=== PATIENT | male | born 1985 | race Two or more races ===

== ENCOUNTER 2022-02-23 21:15 | Inpatient (IN) | payer SELFPAY ==
[~2022-02-23] VITALS: Ht 167.6 cm; Wt 76.1 kg
[2022-02-23 22:00] LABS: BASO % 0 % (0-3); EOS # 0.1 x10^3/uL (0.0-0.7); EOS % 2 % (0-3); HEMATOCRIT 43.8 % (39.0-53.0); HEMOGLOBIN 14.8 g/dL (13.0-17.5); LYMPH % 26 % (24-48); MEAN CORPUSCULAR HEMOGLOBIN 31 pg (25-35); MEAN CORPUSCULAR HGB CONC 34 g/dL (31-37); MEAN CORPUSCULAR VOLUME 93 fL (79-100); MONO # 0.6 x10^3/uL (0.0-1.1); MONO % 7 % (0-9); NEUT # 5.2 x10^3/uL (1.8-7.7); NEUT % 65 % (31-73); PLATELET COUNT 268 x10^3/uL (140-400); RED BLOOD COUNT 4.74 x10^6/uL (4.30-5.70); RED CELL DISTRIBUTION WIDTH 13.5 % (11.5-14.5)
[2022-02-23] MEDS ORDERED: MULTIVIT INFUSN,ADULT 4,VIT K 10 ML, THIAMINE INJ 100 MG, FOLIC ACID INJ 1 MG in IV NOR... IV ONE (22:00)
[2022-02-23 22:11] LABS: ACETAMIN < 2 mcg/ml (10-30); ETHANOL 120 mg/dL (0-10); SALIC 2.7 mg/dL (2.8-20.0)
[2022-02-23 22:15] LABS: ALBUMIN 4.4 g/dL (3.4-5.0); ALBUMIN/GLOBULIN RATIO 1.2 (1.0-1.7); CALCIUM 8.6 mg/dL (8.5-10.1); CREATININE 0.8 mg/dL (0.7-1.3); TOTAL BILIRUBIN 0.9 mg/dL (0.2-1.0); TOTAL PROTEIN 8.1 g/dL (6.4-8.2)
[2022-02-23 22:17] LABS: POTASSIUM 2.9 mmol/L (3.5-5.1)
[2022-02-23] MEDS ORDERED: POTASSIUM CHLORIDE 20 MEQ TABLET.ER. PO ONE (22:30)
--- NOTE | 2022-02-23 23:17 | PHYS DOC ---
Past Medical History Past Medical History: Alcoholism Additional Past Medical Histor: hemorrhoids (ARONMARISA Bell EMBEDDED PROCESSOR) Past Surgical History: No Surgical History (ARONMARISA Bell EMBEDDED PROCESSOR) Smoking Status: Current Every Day Smoker Alcohol Use: Heavy (MARISA RUTHERFORD Radha EMBEDDED PROCESSOR) General Adult EDM: Chief Complaint: ALCOHOL INTOXICATION HPI: HPI: Patient is a 36 year old male with history of alcoholism presenting today complaining of nausea and vomiting that began today after drinking 6-8 beers. Denies any abdominal pain, denies any chest pain or shortness of breath. He also reports smoking weed Patient is Romansh-speaking and interpretation is provided by one of the CNAs (MARISA RUTHERFORD EMBEDDED PROCESSOR) Review of Systems: Review of Systems: Constitutional: Denies fever or chills. [] Eyes: Denies change in visual acuity. [] HENT: Denies nasal congestion or sore throat. [] Respiratory: Denies cough or shortness of breath. [] Cardiovascular: Denies chest pain or edema. [] GI: Reports nausea, vomiting. Denies abdominal pain, bloody stools or diarrhea. [] : Denies dysuria. [] Musculoskeletal: Denies back pain or joint pain. [] Integument: Denies rash. [] Neurologic: Denies headache, focal weakness or sensory changes. [] Endocrine: Denies polyuria or polydipsia. [] Lymphatic: Denies swollen glands. [] Psychiatric: Reports alcohol intoxication (ARONMARISA Bell EMBEDDED PROCESSOR) Heart Score: C/O Chest Pain: N/A Risk Factors: Risk Factors: DM, Current or recent (<one month) smoker, HTN, HLP, family history of CAD, obesity. Risk Scores: Score 0 - 3: 2.5% MACE over next 6 weeks - Discharge Home Score 4 - 6: 20.3% MACE over next 6 weeks - Admit for Clinical Observation Score 7 - 10: 72.7% MACE over next 6 weeks - Early Invasive Strategies (MARISA RUTHERFORD EMBEDDED PROCESSOR) Current Medications: Current Medications Medications (Trade) Dose Ordered Sig/Rodrigo Start Time Stop Time Status Last Admin Dose Admin Multivitamins 10 ml/Thiamine HCl 100 mg/Folic Acid 1 mg/Sodium Chloride 1,011.2 ml @ 1,000.088 mls/hr 1X ONCE 02/23/22 22:00 02/23/22 23:00 DC 02/23/22 22:02 1,000.088 MLS/HR Potassium Chloride (Klor-Con) 40 meq 1X ONCE 02/23/22 22:30 02/23/22 22:31 DC 02/23/22 22:34 40 MEQ (MARISA RUTHERFORD EMBEDDED PROCESSOR) Allergies: Allergies: Allergies Coded Allergies Type Severity Reaction Last Updated Verified No Known Drug Allergies 02/23/22 No (MARISA RUTHERFORD EMBEDDED PROCESSOR) Physical Exam: PE: Constitutional: Well developed, well nourished, no acute distress, non-toxic appearance. [] HENT: Normocephalic, atraumatic, bilateral external ears normal, oropharynx moist, no oral exudates, nose normal. [] Eyes: PERRLA, EOMI, conjunctiva normal, no discharge. [] Neck: Normal range of motion, no tenderness, supple, no stridor. [] Cardiovascular:Heart rate regular rhythm, no murmur [] Lungs & Thorax: Bilateral breath sounds clear to auscultation [] Abdomen: Bowel sounds normal, soft, no tenderness, no masses, no pulsatile masses. [] Skin: Warm, dry, no erythema, no rash. [] Back: No tenderness, no CVA tenderness. [] Extremities: No tenderness, no cyanosis, no clubbing, ROM intact, no edema. [] Neurologic: Alert and oriented X 3, normal motor function, normal sensory function, no focal deficits noted. [] Psychologic: Flat affect, very sleepy though arousable and able to talk. (MARISA RUTHERFORD EMBEDDED PROCESSOR) Current Patient Data: Labs: Laboratory Tests Test 02/23/22 21:30 White Blood Count 8.0 x10^3/uL (4.0-11.0) Red Blood Count 4.74 x10^6/uL (4.30-5.70) Hemoglobin 14.8 g/dL (13.0-17.5) Hematocrit 43.8 % (39.0-53.0) Mean Corpuscular Volume 93 fL (79-100) Mean Corpuscular Hemoglobin 31 pg (25-35) Mean Corpuscular Hemoglobin Concent 34 g/dL (31-37) Red Cell Distribution Width 13.5 % (11.5-14.5) Platelet Count 268 x10^3/uL (140-400) Neutrophils (%) (Auto) 65 % (31-73) Lymphocytes (%) (Auto) 26 % (24-48) Monocytes (%) (Auto) 7 % (0-9) Eosinophils (%) (Auto) 2 % (0-3) Basophils (%) (Auto) 0 % (0-3) Neutrophils # (Auto) 5.2 x10^3/uL (1.8-7.7) Lymphocytes # (Auto) 2.0 x10^3/uL (1.0-4.8) Monocytes # (Auto) 0.6 x10^3/uL (0.0-1.1) Eosinophils # (Auto) 0.1 x10^3/uL (0.0-0.7) Basophils # (Auto) 0.0 x10^3/uL (0.0-0.2) Sodium Level 139 mmol/L (136-145) Potassium Level 2.9 mmol/L (3.5-5.1) *L Chloride Level 101 mmol/L (98-107) Carbon Dioxide Level 22 mmol/L (21-32) Anion Gap 16 (6-14) H Blood Urea Nitrogen 13 mg/dL (8-26) Creatinine 0.8 mg/dL (0.7-1.3) Estimated GFR (Cockcroft-Gault) 110.0 BUN/Creatinine Ratio 16 (6-20) Glucose Level 110 mg/dL (70-99) H Calcium Level 8.6 mg/dL (8.5-10.1) Magnesium Level 2.0 mg/dL (1.8-2.4) Total Bilirubin 0.9 mg/dL (0.2-1.0) Aspartate Amino Transferase (AST) 21 U/L (15-37) Alanine Aminotransferase (ALT) 18 U/L (16-63) Alkaline Phosphatase 86 U/L (46-116) Total Protein 8.1 g/dL (6.4-8.2) Albumin 4.4 g/dL (3.4-5.0) Albumin/Globulin Ratio 1.2 (1.0-1.7) Lipase 71 U/L (73-393) L Salicylates Level 2.7 mg/dL (2.8-20.0) L Salicylate Last Dose Date Unk Salicylate Last Dose Time Unk Acetaminophen Level < 2 mcg/ml (10-30) L Acetaminophen Last Dose Date Unk Acetaminophen Last Dose Time Unk Ethyl Alcohol Level 120 mg/dL (0-10) H Laboratory Tests 02/23/22 21:30 Laboratory Tests 02/23/22 21:30 Vital Signs: Vital Signs Date Time Temp Pulse Resp B/P (MAP) Pulse Ox O2 Delivery O2 Flow Rate FiO2 02/23/22 22:10 92 18 130/75 (93) 100 Room Air 02/23/22 21:18 98.1 98.1 (MARISA RUTHERFORD APRN) EKG: EKG: [] (MARISA RUTHERFORD APRN) Radiology/Procedures: Radiology/Procedures: [] (MARISA RUTHERFORD APRN) Course & Med Decision Making: Course & Med Decision Making Pertinent Labs and Imaging studies reviewed. (See chart for details) This a 36-year-old male patient presented to the ED today complaining of nausea, vomiting, symptoms began after drinking beer. Reports history of alcohol use. Alcohol level 120. CBC with no acute findings, CMP with potassium of 2.9, oral potassium replacement done in the ED. Given a banana bag. [id number] Boyd. (MARISA RUTHERFORD APRN) Course & Med Decision Making This is a 36-year-old male with a history of heavy alcohol use. He initially pr esented intoxicated. While in the ED he became tachycardic with a rate of 130 or so. Twelve-lead EKG is rates down to 106 but he appears to be in atrial fibrillation with fairly frequent PVCs present as well. At this time he has been given a banana bag as well as a liter of normal saline. We will keep him in the hospital for further cardiac monitoring and testing as indicated, he is in stable but guarded condition at this time. Twelve-lead EKG demonstrates atrial fibrillation with a rate of 106. PVCs are present as well. There is no ST elevation or depression. QRS and QT corrected intervals are within normal limits. (HAYDER BOYD MD) Dragon Disclaimer: Dragon Disclaimer: This electronic medical record was generated, in whole or in part, using a voice recognition dictation system. (MUTUNGA,MARISA M EMBEDDED PROCESSOR) Departure Departure Impression: Primary Impression: Alcohol intoxication Qualified Codes: F10.929 - Alcohol use, unspecified with intoxication, unspecified Additional Impressions: Nausea and vomiting Qualified Codes: R11.2 - Nausea with vomiting, unspecified Hypokalemia New onset a-fib Disposition: 09 ADMITTED INPATIENT Condition: GUARDED Referrals: NO PCP (PCP) MARISA RUTHERFORD APRN Feb 23, 2022 23:17 HAYDER BOYD MD Feb 24, 2022 02:17
[2022-02-23 23:33] LABS: AMPHETAMINE/METHAMPHETAMINE NEG (NEG); BARBITURATES NEG (NEG); BENZODIAZEPINES NEG (NEG); CANNABINOIDS POS (NEG); COCAINE NEG (NEG); METHADONE NEG (NEG); OPIATES NEG (NEG); PHENCYCLIDINE NEG (NEG)
[2022-02-23 23:35] LABS: BACTERIA,URINE 0 /HPF (0-FEW); RBC,URINE 0 /HPF (0-2); WBC,URINE 0 /HPF (0-4)
[2022-02-24] MEDS ORDERED: MULTIVIT INFUSN,ADULT 4,VIT K 10 ML, THIAMINE INJ 100 MG, FOLIC ACID INJ 1 MG in IV NOR... IV ONE (01:30)
[2022-02-24] MEDS ORDERED: IV NORMAL SALINE 1000ML BAG 1,000 ML IV ONE (01:30)
[2022-02-24] MEDS ORDERED: POTASSIUM CHLORIDE 20 MEQ TABLET.ER. PO ONE (02:30)
[2022-02-24] MEDS ORDERED: ONDANSETRON PF 4 MG/2 ML VIAL. IVP PRN ×2 (02:30→07:45)
[2022-02-24 03:36] VITALS: BP 127/80
--- NOTE | 2022-02-24 04:16 | NUR ---
Pt arrived to unit per cart pt ambulated to bed from cart with standby assist,pt oriented to surroundings and call light tele monitor applied to pt vs obtained and stable pt denied chest pain at this time. Pt c/o his hemorrhoids at time of assessment. Poc explained to pt with translation call light in placed in reach will resume care and continue to monitor pt.
[2022-02-24 07:00] VITALS: BP 125/81
--- NOTE | 2022-02-24 07:22 | EKG ---
[facility] [address] [place] [address] Test Date: 2022-02-24 Test Time: 01:41:11 Pat Name: CLARENCE ELY Department: Room: [facility] Gender: M Patient Services Coordinator: : 1985 Requested By: HAYDER BOYD Order Number: [id number] Reading MD: Travis Jesus Measurements Intervals [place] Rate: 106 P: OK: QRS: 71 QRSD: 82 T: 11 QT: 340 QTc: 453 Interpretive Statements ATRIAL FIBRILLATION Electronically Signed On 02-26-2022 21:33:49 CDT by Travis Jesus
[2022-02-24] MEDS ORDERED: ONDANSETRON ODT 4 MG TAB.RAPDIS. PO PRN (07:45)
[2022-02-24] MEDS ORDERED: POTASSIUM CL 20MEQ D5-0.45NACL 1,000 ML IV ONE (07:45)
[2022-02-24] MEDS: ACETAMINOPHEN 325 MG TABLET. PO PRN (08:00)
--- NOTE | 2022-02-24 08:22 | PDOC1 ---
History and Physical Date of Admission Date of Admission DATE: 02/24/22 TIME: 07:52 Identification/Chief Complaint Chief Complaint Vomiting Source Source: Patient History of Present Illness History of Present Illness Mr Leal is a 36 year old male with history of alcohol use disorder, smoker presenting to ED with significant other complaining of nausea and vomiting that began after drinking 6-8 beers. Denies any abdominal pain, denies any chest pain or shortness of breath. He also reports smoking marijuana Patient is Mozambican-speaking and interpretation is provided by [employer] undercover cop and W-21 application Alcohol level 120. CBC with no acute findings, CMP with potassium of 2.9, oral potassium replacement done in the ED. Given a banana bag. He initially presented intoxicated and when he got up to stand became tachycardic with a rate of 130 Twelve-lead EKG demonstrates atrial fibrillation with a rate of 106. PVCs are present as well. There is no ST elevation or depression. QRS and QT corrected intervals are within normal limits. WBC 8, Hb 14.8, platelets 268, NA 139, K3.9, BUN 13, CR 0.8, glucose 110, lipase 71, LFTs within normal laboratory limits, ethanol level 120 mg/dL at 2130, urine ethanol and cannabinoids positive, urinalysis otherwise bland Seen bedside and after 4 hours of atrial tachycardia on telemetry he converted to sinus about 30 minutes prior to my evaluation. He feels improved has a little bit of nausea but is asking for something by mouth Past Medical History Cardiovascular: HTN Past Surgical History Past Surgical History: No pertinent history Family History Family History: Diabetes, High Cholestrol, Hypertension Social History Smoke: 1 pack per day ALCOHOL: heavy Drugs: Marijuana Current Problem List Problem List Problems Medical Problems: (1) Alcohol intoxication Status: Acute (2) Hypokalemia Status: Acute (3) Nausea and vomiting Status: Acute (4) New onset a-fib Status: Acute Current Medications Current Medications Current Medications Multivitamins 10 ml/Thiamine HCl 100 mg/Folic Acid 1 mg/Sodium Chloride 1,011.2 ml @ 1,000.088 mls/hr 1X ONCE IV Last administered on 02/23/22at 22:02; Start 02/23/22 at 22:00; Stop 02/23/22 at 23:00; Status DC Potassium Chloride (Klor-Con) 40 meq 1X ONCE PO Last administered on 02/23/22at 22:34; Start 02/23/22 at 22:30; Stop 02/23/22 at 22:31; Status DC Multivitamins 10 ml/Thiamine HCl 100 mg/Folic Acid 1 mg/Sodium Chloride 1,011.2 ml @ 1,000.088 mls/hr 1X ONCE IV ; Start 02/24/22 at 01:30; Stop 02/24/22 at 02:30; Status Cancel Sodium Chloride 1,000 ml @ 1,000 mls/hr 1X ONCE IV Last administered on 02/24/22at 01:30; Start 02/24/22 at 01:30; Stop 02/24/22 at 02:29; Status DC Ondansetron HCl (Zofran) 4 mg PRN Q8HRS PRN IVP NAUSEA/VOMITING; Start 02/24/22 at 02:30; Stop 02/25/22 at 02:29 Potassium Chloride (Klor-Con) 40 meq 1X ONCE PO Last administered on 02/24/22at 02:41; Start 02/24/22 at 02:30; Stop 02/24/22 at 02:31; Status DC Active Scripts Active Reported No Known Medications Prior To Admisstion (Info) Each 1 Each Allergies Allergies: Coded Allergies: No Known Drug Allergies (Unverified , 02/23/22) ROS General: YES: Fatigue, Malaise; No: Chills, Night Sweats, Appetite, Other PSYCHOLOGICAL ROS: No: Anxiety, Behavioral Disorder, Concentration difficultie, Decreased libido, Depression, Disorientation, Hallucinations, Hostility, Irritablity, Memory difficulties, Mood Swings, Obsessive thoughts, Physical abuse, Sexual abuse, Sleep disturbances, Suicidal ideation, Other Eyes: No Blurry vision, No Decreased vision, No Double vision, No Dry eyes, No Excessive tearing, No Eye Pain, No Itchy Eyes, No Loss of vision, No Photophobia, No Scotomata, No Uses contacts, No Uses glasses, No Other HEENT: No: Heacaches, Visual Changes, Hearing change, Nasal congestion, Nasal discharge, Oral lesions, Sinus pain, Sore Throat, Epistaxis, Sneezing, Snoring, Tinnitus, Vertigo, Vocal changes, Other ALLERGY AND IMMUNOLOGY: No: Hives, Insect Bite Sensitivity, Itchy/Watery Eyes, Nasal Congestion, Post Nasal Drip, Seasonal Allergies, Other Hematological and Lymphatic: No: Bleeding Problems, Blood Clots, Blood Transfusions, Brusing, Night Sweats, Pallor, Swollen Lymph Nodes, Other ENDOCRINE: No: Breast Changes, Galactorrhea, Hair Pattern Changes, Hot Flashes, Malaise/lethargy, Mood Swings, Palpitations, Polydipsia/polyuria, Skin Changes, Temperature Intolerance, Unexpected Weight Changes, Other Breast: No New/Changing Breast Lumps, No Nipple changes, No Nipple discharge, No Other Respiratory: No: Cough, Hemoptysis, Orthopnea, Pleuritic Pain, Shortness of breath, SOB with excertion, Sputum Changes, Stridor, Tachypnea, Wheezing, Other Cardiovascular: No Chest Pain, No Palpitations, No Orthopnea, No Paroxysmal Noc. Dyspnea, No Edema, No Lt Headedness, No Other Gastrointestinal: Yes Nausea; No Vomiting, No Abdominal Pain, No Diarrhea, No Constipation, No Melena, No Hematochezia, No Other Genitourinary: No Dysuria, No Frequency, No Incontinence, No Hematuria, No Retention, No Discharge, No Urgency, No Pain, No Flank Pain, No Other, No , No , No , No , No , No , No Musculoskeletal: No Gait Disturbance, No Joint Pain, No Joint Stiffness, No Joint Swelling, No Muscle Pain, No Muscular Weakness, No Pain In:, No Swelling In:, No Other Neurological: No Behavorial Changes, No Bowel/Bladder ControlChng, No Confusion, No Dizziness, No Gait Disturbance, No Headaches, No Impaired Coord/balance, No Memory Loss, No Numbness/Tingling, No Seizures, No Speech Problems, No Tremors, No Visual Changes, No Weakness, No Other Skin: No Dry Skin, No Eczema, No Hair Changes, No Lumps, No Mole Changes, No Mottling, No Nail Changes, No Pruritus, No Rash, No Skin Lesion Changes, No Other, No Acne Physical Exam General: Alert, Oriented X3, Cooperative, mild distress HEENT: Atraumatic, PERRLA, EOMI, Mucous membr. moist/pink Lungs: Clear to auscultation, Normal air movement Heart: S1S2, RRR, no thrills, no rubs, no gallops, no murmurs Abdomen: Normal bowel sounds, Soft, No tenderness, No hepatosplenomegaly, No masses Rectal Exam: not examined Extremities: No clubbing, No cyanosis, No edema, Normal pulses, No tenderness/swelling Skin: No rashes, No breakdown, No significant lesion Neuro: Normal gait, Normal speech, Strength at 5/5 X4 ext, Normal tone, Sensation intact, Cranial nerves 3-12 NL, Reflexes 2+ Psych/Mental Status: Mental status NL, Mood NL Vitals Vitals Vital Signs Date Time Temp Pulse Resp B/P (MAP) Pulse Ox O2 Delivery O2 Flow Rate FiO2 02/24/22 03:36 97.4 105 18 127/80 (96) 98 Room Air 97.4 02/24/22 02:10 Labs Labs Laboratory Tests Test 02/23/22 21:30 02/23/22 23:19 White Blood Count 8.0 x10^3/uL (4.0-11.0) Red Blood Count 4.74 x10^6/uL (4.30-5.70) Hemoglobin 14.8 g/dL (13.0-17.5) Hematocrit 43.8 % (39.0-53.0) Mean Corpuscular Volume 93 fL (79-100) Mean Corpuscular Hemoglobin 31 pg (25-35) Mean Corpuscular Hemoglobin Concent 34 g/dL (31-37) Red Cell Distribution Width 13.5 % (11.5-14.5) Platelet Count 268 x10^3/uL (140-400) Neutrophils (%) (Auto) 65 % (31-73) Lymphocytes (%) (Auto) 26 % (24-48) Monocytes (%) (Auto) 7 % (0-9) Eosinophils (%) (Auto) 2 % (0-3) Basophils (%) (Auto) 0 % (0-3) Neutrophils # (Auto) 5.2 x10^3/uL (1.8-7.7) Lymphocytes # (Auto) 2.0 x10^3/uL (1.0-4.8) Monocytes # (Auto) 0.6 x10^3/uL (0.0-1.1) Eosinophils # (Auto) 0.1 x10^3/uL (0.0-0.7) Basophils # (Auto) 0.0 x10^3/uL (0.0-0.2) Sodium Level 139 mmol/L (136-145) Potassium Level 2.9 mmol/L (3.5-5.1) Chloride Level 101 mmol/L (98-107) Carbon Dioxide Level 22 mmol/L (21-32) Anion Gap 16 (6-14) Blood Urea Nitrogen 13 mg/dL (8-26) Creatinine 0.8 mg/dL (0.7-1.3) Estimated GFR (Cockcroft-Gault) 110.0 BUN/Creatinine Ratio 16 (6-20) Glucose Level 110 mg/dL (70-99) Calcium Level 8.6 mg/dL (8.5-10.1) Magnesium Level 2.0 mg/dL (1.8-2.4) Total Bilirubin 0.9 mg/dL (0.2-1.0) Aspartate Amino Transf (AST/SGOT) 21 U/L (15-37) Alanine Aminotransferase (ALT/SGPT) 18 U/L (16-63) Alkaline Phosphatase 86 U/L (46-116) Total Protein 8.1 g/dL (6.4-8.2) Albumin 4.4 g/dL (3.4-5.0) Albumin/Globulin Ratio 1.2 (1.0-1.7) Lipase 71 U/L (73-393) Salicylates Level 2.7 mg/dL (2.8-20.0) Salicylate Last Dose Date Unk Salicylate Last Dose Time Unk Acetaminophen Level < 2 mcg/ml (10-30) Acetaminophen Last Dose Date Unk Acetaminophen Last Dose Time Unk Ethyl Alcohol Level 120 mg/dL (0-10) Urine Collection Type Unknown Urine Color (Auto) Colorless Urine Turbidity Clear Urine pH (Auto) 6.0 (<5.0-8.0) Urine Specific [place] 1.006 (1.000-1.030) Urine Protein (Auto) Negative mg/dL (Negative) Urine Glucose (Auto)(UA) Negative mg/dL (Negative) Urine Ketones (Auto) Negative mg/dL (Negative) Urine Blood (Auto) Negative (Negative) Urine Nitrite Negative (Negative) Urine Bilirubin (Auto) Negative (Negative) Urine Urobilinogen (Auto) Normal mg/dL (Normal) Urine Leukocyte Esterase (Auto) Negative (Negative) Urine RBC 0 /HPF (0-2) Urine WBC 0 /HPF (0-4) Urine Squamous Epithelial Cells Occ /LPF Urine Bacteria 0 /HPF (0-FEW) Urine Opiates Screen Neg (NEG) Urine Methadone Screen Neg (NEG) Urine Barbiturates Neg (NEG) Urine Phencyclidine Screen Neg (NEG) Urine Amphetamine/Methamphetamine Neg (NEG) Urine Benzodiazepines Screen Neg (NEG) Urine Cocaine Screen Neg (NEG) Urine Cannabinoids Screen Pos (NEG) Urine Ethyl Alcohol Pos (NEG) Laboratory Tests Test 02/23/22 21:30 02/23/22 23:19 White Blood Count 8.0 x10^3/uL (4.0-11.0) Red Blood Count 4.74 x10^6/uL (4.30-5.70) Hemoglobin 14.8 g/dL (13.0-17.5) Hematocrit 43.8 % (39.0-53.0) Mean Corpuscular Volume 93 fL (79-100) Mean Corpuscular Hemoglobin 31 pg (25-35) Mean Corpuscular Hemoglobin Concent 34 g/dL (31-37) Red Cell Distribution Width 13.5 % (11.5-14.5) Platelet Count 268 x10^3/uL (140-400) Neutrophils (%) (Auto) 65 % (31-73) Lymphocytes (%) (Auto) 26 % (24-48) Monocytes (%) (Auto) 7 % (0-9) Eosinophils (%) (Auto) 2 % (0-3) Basophils (%) (Auto) 0 % (0-3) Neutrophils # (Auto) 5.2 x10^3/uL (1.8-7.7) Lymphocytes # (Auto) 2.0 x10^3/uL (1.0-4.8) Monocytes # (Auto) 0.6 x10^3/uL (0.0-1.1) Eosinophils # (Auto) 0.1 x10^3/uL (0.0-0.7) Basophils # (Auto) 0.0 x10^3/uL (0.0-0.2) Sodium Level 139 mmol/L (136-145) Potassium Level 2.9 mmol/L (3.5-5.1) Chloride Level 101 mmol/L (98-107) Carbon Dioxide Level 22 mmol/L (21-32) Anion Gap 16 (6-14) Blood Urea Nitrogen 13 mg/dL (8-26) Creatinine 0.8 mg/dL (0.7-1.3) Estimated GFR (Cockcroft-Gault) 110.0 BUN/Creatinine Ratio 16 (6-20) Glucose Level 110 mg/dL (70-99) Calcium Level 8.6 mg/dL (8.5-10.1) Magnesium Level 2.0 mg/dL (1.8-2.4) Total Bilirubin 0.9 mg/dL (0.2-1.0) Aspartate Amino Transf (AST/SGOT) 21 U/L (15-37) Alanine Aminotransferase (ALT/SGPT) 18 U/L (16-63) Alkaline Phosphatase 86 U/L (46-116) Total Protein 8.1 g/dL (6.4-8.2) Albumin 4.4 g/dL (3.4-5.0) Albumin/Globulin Ratio 1.2 (1.0-1.7) Lipase 71 U/L (73-393) Salicylates Level 2.7 mg/dL (2.8-20.0) Salicylate Last Dose Date Unk Salicylate Last Dose Time Unk Acetaminophen Level < 2 mcg/ml (10-30) Acetaminophen Last Dose Date Unk Acetaminophen Last Dose Time Unk Ethyl Alcohol Level 120 mg/dL (0-10) Urine Collection Type Unknown Urine Color (Auto) Colorless Urine Turbidity Clear Urine pH (Auto) 6.0 (<5.0-8.0) Urine Specific [place] 1.006 (1.000-1.030) Urine Protein (Auto) Negative mg/dL (Negative) Urine Glucose (Auto)(UA) Negative mg/dL (Negative) Urine Ketones (Auto) Negative mg/dL (Negative) Urine Blood (Auto) Negative (Negative) Urine Nitrite Negative (Negative) Urine Bilirubin (Auto) Negative (Negative) Urine Urobilinogen (Auto) Normal mg/dL (Normal) Urine Leukocyte Esterase (Auto) Negative (Negative) Urine RBC 0 /HPF (0-2) Urine WBC 0 /HPF (0-4) Urine Squamous Epithelial Cells Occ /LPF Urine Bacteria 0 /HPF (0-FEW) Urine Opiates Screen Neg (NEG) Urine Methadone Screen Neg (NEG) Urine Barbiturates Neg (NEG) Urine Phencyclidine Screen Neg (NEG) Urine Amphetamine/Methamphetamine Neg (NEG) Urine Benzodiazepines Screen Neg (NEG) Urine Cocaine Screen Neg (NEG) Urine Cannabinoids Screen Pos (NEG) Urine Ethyl Alcohol Pos (NEG) VTE Prophylaxis Ordered VTE Prophylaxis Devices: Yes VTE Pharmacological Prophylaxi: Yes Assessment/Plan Assessment/Plan Alcohol intoxication -given banana bag and IV fluids. IV Zofran for nausea control Nausea and vomiting -improved with IV fluids and nausea. Hypokalemia -due to vomiting GI losses. Replaced p.o. and IV New onset a-fib -converted to sinus spontaneously. He has significant other no prior history of hypertension was on blood pressure medications but has not been on them for long time. FEN - Cardiac diet PPX - lovenox FULL CODE Dispo - inpatient Justifications for Admission Other Justification BETZY RODRIGUEZ MD Feb 24, 2022 08:22
[2022-02-24 11:00] VITALS: BP 134/75
--- NOTE | 2022-02-24 11:51 | PDOC2 ---
KIMMIE DAVIS SENIOR WAREHOUSE CLERK 02/24/22 1151: CARDIAC CONSULT DATE OF CONSULT Date of Consult DATE: 02/24/22 TIME: 11:32 REASON FOR CONSULT Reason for Consult: AFIB REFERRING PHYSICIAN Referring Physician: Cass SOURCE Source: Chart review, Patient HISTORY OF PRESENT ILLNESS HISTORY OF PRESENT ILLNESS This is a 36 yo male admitted for ETOH misuse with associated nausea and vomiting and also diarrhea. Denies any chest pain, SOA. Upon admission he was noted with AFIB RVR which he spontaneously convert without meds. He was also noted with hypokalemia. No hx of CV disease and arrhythmias. Denies any fever or chills. He drinks at least 6 beers daily and yesterday did not eat food. He drank at least 7 beers yesterday before his symptoms started. No falls or any recent injury. PAST MEDICAL HISTORY Past Medical History No pertinent medical history PAST SURGICAL HISTORY Past Surgical History: No pertinent history FAMILY HISTORY Family History: Hypertension (mother) SOCIAL HISTORY Smoke: 1 pack per day ALCOHOL: heavy Drugs: Marijuana Lives: with Family CURRENT MEDICATIONS CURRENT MEDICATIONS Current Medications Medications (Trade) Dose Ordered Sig/Rodrigo Route PRN Reason Start Time Stop Time Status Last Admin Dose Admin Multivitamins 10 ml/Thiamine HCl 100 mg/Folic Acid 1 mg/Sodium Chloride 1,011.2 ml @ 1,000.088 mls/hr 1X ONCE IV 02/23/22 22:00 02/23/22 23:00 DC 02/23/22 22:02 Potassium Chloride (Klor-Con) 40 meq 1X ONCE PO 02/23/22 22:30 02/23/22 22:31 DC 02/23/22 22:34 Sodium Chloride 1,000 ml @ 1,000 mls/hr 1X ONCE IV 02/24/22 01:30 02/24/22 02:29 DC 02/24/22 01:30 Potassium Chloride (Klor-Con) 40 meq 1X ONCE PO 02/24/22 02:30 02/24/22 02:31 DC 02/24/22 02:41 Acetaminophen (Tylenol) 650 mg PRN Q6HRS PRN PO MILD PAIN / TEMP > 100.3'F 02/24/22 07:45 02/24/22 08:00 Potassium Chloride/Dextrose/ Sod Cl 1,000 ml @ 125 mls/hr Q8H ONCE IV 02/24/22 07:45 02/24/22 15:44 02/24/22 08:00 ALLERGIES ALLERGIES: Coded Allergies: No Known Drug Allergies (Unverified , 02/23/22) ROS Review of System 14 point ROS evaluated with pertinent positives noted per HPI PHYSICAL EXAM General: Alert, Oriented X3, Cooperative, No acute distress HEENT: Atraumatic, Mucous membr. moist/pink Lungs: Clear to auscultation, Normal air movement Heart: Regular rate (SR), Normal S1, Normal S2, No murmurs Abdomen: Soft, No tenderness Extremities: No cyanosis, No edema Skin: No breakdown, No significant lesion Neuro: Normal speech, Sensation intact Psych/Mental Status: Mental status NL, Mood NL MUSCULOSKELETAL: Full range of motion without pain VITALS/I&O VITALS/I&O: Vital Signs Date Time Temp Pulse Resp B/P (MAP) Pulse Ox O2 Delivery O2 Flow Rate FiO2 02/24/22 08:00 Room Air 02/24/22 07:00 98.2 92 16 125/81 (96) 98 98.2 02/24/22 02:10 I & O 02/23/22 02/23/22 02/24/22 15:00 23:00 07:00 Intake Total 1211.2 ml Balance 1211.2 ml LABS Lab: Laboratory Tests Test 02/23/22 21:30 02/23/22 23:19 White Blood Count 8.0 x10^3/uL (4.0-11.0) Red Blood Count 4.74 x10^6/uL (4.30-5.70) Hemoglobin 14.8 g/dL (13.0-17.5) Hematocrit 43.8 % (39.0-53.0) Mean Corpuscular Volume 93 fL (79-100) Mean Corpuscular Hemoglobin 31 pg (25-35) Mean Corpuscular Hemoglobin Concent 34 g/dL (31-37) Red Cell Distribution Width 13.5 % (11.5-14.5) Platelet Count 268 x10^3/uL (140-400) Neutrophils (%) (Auto) 65 % (31-73) Lymphocytes (%) (Auto) 26 % (24-48) Monocytes (%) (Auto) 7 % (0-9) Eosinophils (%) (Auto) 2 % (0-3) Basophils (%) (Auto) 0 % (0-3) Neutrophils # (Auto) 5.2 x10^3/uL (1.8-7.7) Lymphocytes # (Auto) 2.0 x10^3/uL (1.0-4.8) Monocytes # (Auto) 0.6 x10^3/uL (0.0-1.1) Eosinophils # (Auto) 0.1 x10^3/uL (0.0-0.7) Basophils # (Auto) 0.0 x10^3/uL (0.0-0.2) Sodium Level 139 mmol/L (136-145) Potassium Level 2.9 mmol/L (3.5-5.1) *L Chloride Level 101 mmol/L (98-107) Carbon Dioxide Level 22 mmol/L (21-32) Anion Gap 16 (6-14) H Blood Urea Nitrogen 13 mg/dL (8-26) Creatinine 0.8 mg/dL (0.7-1.3) Estimated GFR (Cockcroft-Gault) 110.0 BUN/Creatinine Ratio 16 (6-20) Glucose Level 110 mg/dL (70-99) H Calcium Level 8.6 mg/dL (8.5-10.1) Magnesium Level 2.0 mg/dL (1.8-2.4) Total Bilirubin 0.9 mg/dL (0.2-1.0) Aspartate Amino Transferase (AST) 21 U/L (15-37) Alanine Aminotransferase (ALT) 18 U/L (16-63) Alkaline Phosphatase 86 U/L (46-116) Total Protein 8.1 g/dL (6.4-8.2) Albumin 4.4 g/dL (3.4-5.0) Albumin/Globulin Ratio 1.2 (1.0-1.7) Lipase 71 U/L (73-393) L Salicylates Level 2.7 mg/dL (2.8-20.0) L Salicylate Last Dose Date Unk Salicylate Last Dose Time Unk Acetaminophen Level < 2 mcg/ml (10-30) L Acetaminophen Last Dose Date Unk Acetaminophen Last Dose Time Unk Ethyl Alcohol Level 120 mg/dL (0-10) H Urine Collection Type Unknown Urine Color (Auto) Colorless Urine Turbidity Clear Urine pH (Auto) 6.0 (<5.0-8.0) Urine Specific Pitts 1.006 (1.000-1.030) Urine Protein (Auto) Negative mg/dL (Negative) Urine Glucose (Auto)(UA) Negative mg/dL (Negative) Urine Ketones (Auto) Negative mg/dL (Negative) Urine Blood (Auto) Negative (Negative) Urine Nitrite Negative (Negative) Urine Bilirubin (Auto) Negative (Negative) Urine Urobilinogen (Auto) Normal mg/dL (Normal) Urine Leukocyte Esterase (Auto) Negative (Negative) Urine RBC 0 /HPF (0-2) Urine WBC 0 /HPF (0-4) Urine Squamous Epithelial Cells Occ /LPF Urine Bacteria 0 /HPF (0-FEW) Urine Opiates Screen Neg (NEG) Urine Methadone Screen Neg (NEG) Urine Barbiturates Neg (NEG) Urine Phencyclidine Screen Neg (NEG) Urine Amphetamine/Methamphetamine Neg (NEG) Urine Benzodiazepines Screen Neg (NEG) Urine Cocaine Screen Neg (NEG) Urine Cannabinoids Screen Pos (NEG) Urine Ethyl Alcohol Pos (NEG) Laboratory Tests 02/23/22 21:30 Laboratory Tests 02/23/22 21:30 ASSESSMENT/PLAN ASSESSMENT/PLAN 1. ETOH misuse 2. Nausea/vomiting/diarrhea: due to above 3. Anion gap metabolic acidosis: due to above 4. Hypokalemia 5. AFIB RVR: new onset due to above, spontaneously converted to SR 6. Tobacco and marijuana use Recommendations 1. CIWA protocol 2. Continue IVF 3. Low dose metoprolol and monitor for any bradycardia. Replace K 4. MCOT is recommended but may not be able to comply due to lack of health ins. 5. Lifestyle modification including abstinence as noted above 6. TTE and TSH ELLY THOMAS MD 02/25/22 1005: CARDIAC CONSULT ASSESSMENT/PLAN ASSESSMENT/PLAN Patient seen and examined 02/24/22. Agree with GRATED CHEESE MAKER's assessment and plan. Atrial fib new onset prob related to heavy alcohol use, presently back in SR Check 2D echo to assess LVF Plan event monitor as outpatient Importance for abstinence from alcohol abuse reemphasized Thank you for your consultation KIMMIE DAVIS APRN Feb 24, 2022 11:51 ELLY THOMAS MD Feb 25, 2022 10:05
[2022-02-24] MEDS: METOPROLOL TART IMMED RELEASE 25 MG TABLET. PO SCH ×2 (11:58→21:34)
[2022-02-24] MEDS ORDERED: ASPIRIN ENTERIC COATED 81 MG TABLET.DR. PO SCH (14:00)
[2022-02-24 14:24] LABS: CALCIUM 8.6 mg/dL (8.5-10.1); CREATININE 0.9 mg/dL (0.7-1.3); POTASSIUM 4.1 mmol/L (3.5-5.1)
--- NOTE | 2022-02-24 14:58 | NUR ---
SS following for discharge planning. SS reviewed pt chart and discussed with pt RN. Pt is from home with spouse and is currently on room air. Cardiology consulted. Self pay. Med Assist following. SS will continue to follow for discharge planning.
[2022-02-24 15:00] VITALS: BP 119/60
--- NOTE | 2022-02-24 16:50 | CARD ---
MR#: [id number] Date of Study: 02/24/2022 Ordering Physician: KIMMIE DAVIS, Referring Physician: KIMMIE DAVIS Tech: Pierre Colin [facility] APPROVED REPORT EXAM: Two-dimensional and M-mode echocardiogram with Doppler and color Doppler. Other Information Quality : GoodHR: 60bpm Rhythm : NSR INDICATION Atrial Fibrillation RISK FACTORS Smoking Etoh abuse 2D DIMENSIONS Left Atrium(2D)3.0 (1.6-4.0cm)IVSd1.0 (0.7-1.1cm) Aortic Root(2D)3.3 (2.0-3.7cm)LVDd4.7 (3.9-5.9cm) LVOT Diameter2.2 (1.8-2.4cm)PWd1.0 (0.7-1.1cm) LA Hgvukr47 (18-58mL)LVDs3.5 (2.5-4.0cm) FS (%) 26.0 %SV51.9 ml LVEF(%)51.1 (>50%) Aortic Valve AoV Peak Morgan.106.0cm/sAoV VTI19.8cm AO Peak GR.4.5mmHgLVOT Peak Morgan.85.5cm/s AO Mean GR.2mmHgAVA (VMAX)3.11cm2 Mitral Valve MV E Jgyrantd20.7cm/sMV E Peak Gr.3mmHg MV DECEL [id number] A Dvkkmmav58.4cm/s MV E Mean Gr.1mmHgE/A Ratio2.7 Pulmonary Valve PV Peak Lqfntwnl01.8cm/s Tricuspid Valve TR P. Nmtrgokh706is/sTR Peak Gr.14mmHg Pulmonary Vein S1 Ofijkfho07.0cm/sD2 Zbmridlk00.7cm/s LEFT VENTRICLE The left ventricle is normal size. There is normal left ventricular wall thickness. The left ventricu lar systolic function is mildly decreased. EF 40-45% There is mild global hypokinesis. The left ventr icular diastolic function and filling is normal for age. No left ventricle thrombus noted on this shazia dy. There is no ventricular septal defect visualized. There is no left ventricular aneurysm. There is no mass noted in the left ventricle. RIGHT VENTRICLE The right ventricle is mildly enlarged. There is normal right ventricular wall thickness. The right v entricular systolic function is normal. ATRIA The left atrium size is normal. The right atrium size is normal. The interatrial septum is intact wit h no evidence for an atrial septal defect or patent foramen ovale as noted on 2-D or Doppler imaging. AORTIC VALVE The aortic valve is mildly sclerotic. Doppler and Color Flow revealed no significant aortic regurgita tion. There is no significant aortic valvular stenosis. There is no aortic valvular vegetation. MITRAL VALVE The mitral valve is normal in structure and function. There is no evidence of mitral valve prolapse. There is no mitral valve stenosis. Doppler and Color-flow revealed trace to mild mitral regurgitation . TRICUSPID VALVE The tricuspid valve is normal in structure and function. Doppler and Color Flow revealed trace tricus pid regurgitation. The PA pressure was estimated at 19 mmHg. There is no tricuspid valve prolapse or vegetation. There is no tricuspid valve stenosis. PULMONIC VALVE Doppler and Color Flow revealed no pulmonic valvular regurgitation. There is no pulmonic valvular ash nosis. GREAT VESSELS The aortic root is normal in size. The ascending aorta is normal in size. The IVC is normal in size a nd collapses >50% with inspiration. PERICARDIAL EFFUSION There is no evidence of significant pericardial effusion. Critical Notification Critical Value: No <Conclusion> The left ventricular systolic function is mildly decreased. EF 40-45% There is mild global hypokinesis. The right ventricle is mildly enlarged. Signed by : Clifford Puckett, Electronically Approved : 02/24/2022 16:50:06
[2022-02-24 19:00] VITALS: BP 120/70
[2022-02-24 22:51] VITALS: BP 125/59
[2022-02-25 02:30] VITALS: BP 123/75
[2022-02-25 05:51] LABS: BASO % 1 % (0-3); EOS # 0.1 x10^3/uL (0.0-0.7); EOS % 3 % (0-3); HEMATOCRIT 43.8 % (39.0-53.0); HEMOGLOBIN 14.6 g/dL (13.0-17.5); LYMPH # 1.6 x10^3/uL (1.0-4.8); LYMPH % 38 % (24-48); MEAN CORPUSCULAR HEMOGLOBIN 31 pg (25-35); MEAN CORPUSCULAR HGB CONC 33 g/dL (31-37); MEAN CORPUSCULAR VOLUME 93 fL (79-100); MONO # 0.5 x10^3/uL (0.0-1.1); MONO % 11 % (0-9); NEUT % 48 % (31-73); PLATELET COUNT 226 x10^3/uL (140-400); RED BLOOD COUNT 4.72 x10^6/uL (4.30-5.70); RED CELL DISTRIBUTION WIDTH 13.9 % (11.5-14.5); WHITE BLOOD COUNT 4.2 x10^3/uL (4.0-11.0)
[2022-02-25 06:03] LABS: CALCIUM 8.8 mg/dL (8.5-10.1); CREATININE 0.8 mg/dL (0.7-1.3); POTASSIUM 3.9 mmol/L (3.5-5.1)
[2022-02-25 07:00] VITALS: BP 131/75
[2022-02-25] MEDS: METOPROLOL SUCC 24HR ER 25 MG TAB.ER.24H. PO SCH ×2 (07:25→09:17)
[2022-02-25] MEDS ORDERED: ASPIRIN ENTERIC COATED 81 MG TABLET.DR. PO SCH (08:00)
[2022-02-25 08:22] LABS: CHOLESTEROL/HDL RATIO 2.4
--- NOTE | 2022-02-25 08:33 | PDOC ---
[employer] PROGRESS NOTE Date of Service DOS: DATE: 02/25/22 TIME: 08:29 Chief Complaint Chief Complaint Alcohol intoxication -given banana bag and IV fluids. IV Zofran for nausea control Nausea and vomiting -improved with IV fluids and nausea. Hypokalemia -due to vomiting GI losses. Replaced p.o. and IV New onset a-fib -converted to sinus spontaneously. He has significant other no prior history of hypertension was on blood pressure medications but has not been on them for long time. FEN - Cardiac diet PPX - lovenox FULL CODE Dispo - inpatient History of Present Illness History of Present Illness Mr Leal is a 36 year old male with history of alcohol use disorder, smoker presenting to ED with significant other complaining of nausea and vomiting that began after drinking 6-8 beers. Denies any abdominal pain, denies any chest pain or shortness of breath. He also reports smoking marijuana Patient is Malay-speaking and interpretation is provided by [employer] senior infrastructure engineer and [employer] application Alcohol level 120. CBC with no acute findings, CMP with potassium of 2.9, oral potassium replacement done in the ED. Given a banana bag. He initially presented intoxicated and when he got up to stand became tachycardic with a rate of 130 Twelve-lead EKG demonstrates atrial fibrillation with a rate of 106. PVCs are present as well. There is no ST elevation or depression. QRS and QT corrected intervals are within normal limits. WBC 8, Hb 14.8, platelets 268, NA 139, K3.9, BUN 13, CR 0.8, glucose 110, lipase 71, LFTs within normal laboratory limits, ethanol level 120 mg/dL at 2130, urine ethanol and cannabinoids positive, urinalysis otherwise bland Seen bedside and after 4 hours of atrial tachycardia on telemetry he converted to sinus about 30 minutes prior to my evaluation. He feels improved has a little bit of nausea but is asking for something by mouth Echo with left ventricular systolic function mildly decreased. EF 40-45% and mild global hypokinesis as well as right ventricle mildly enlarged. 02/25: Seen bedside his . He does have chest right-sided chest pain today that is positional and reproducible with palpation. Discussed results of echocardiogram and need for outpatient cardiology follow-up and stress testing. Emphasized alcohol cessation and smoking cessation. He voiced, understanding. Utilize [employer] biomedical engineering internship services for interview today. Will be discharged home on Toprol-XL lisinopril ASA and statin. Vitals/I&O Vitals/I&O: Vital Signs Date Time Temp Pulse Resp B/P (MAP) Pulse Ox O2 Delivery O2 Flow Rate FiO2 02/25/22 07:52 59 123/75 02/25/22 02:30 97.9 16 99 Room Air 97.9 I & O 02/24/22 02/24/22 02/25/22 15:00 23:00 07:00 Intake Total 500 ml Output Total 650 ml 400 ml Balance -150 ml -400 ml Physical Exam General: Alert, Oriented X3, Cooperative, No acute distress Heart: Regular rate (SR), Normal S1, Normal S2, No murmurs Abdomen: Soft, No tenderness Extremities: No cyanosis, No edema Skin: No breakdown, No significant lesion Labs Labs: Laboratory Tests Test 02/24/22 13:43 02/25/22 05:00 Sodium Level 137 mmol/L (136-145) 137 mmol/L (136-145) Potassium Level 4.1 mmol/L (3.5-5.1) 3.9 mmol/L (3.5-5.1) Chloride Level 104 mmol/L (98-107) 104 mmol/L (98-107) Carbon Dioxide Level 25 mmol/L (21-32) 25 mmol/L (21-32) Anion Gap 8 (6-14) 8 (6-14) Blood Urea Nitrogen 10 mg/dL (8-26) 11 mg/dL (8-26) Creatinine 0.9 mg/dL (0.7-1.3) 0.8 mg/dL (0.7-1.3) Estimated GFR (Cockcroft-Gault) 96.0 110.0 Glucose Level 116 mg/dL (70-99) 88 mg/dL (70-99) Calcium Level 8.6 mg/dL (8.5-10.1) 8.8 mg/dL (8.5-10.1) Thyroid Stimulating Hormone (TSH) 1.145 uIU/mL (0.358-3.74) White Blood Count 4.2 x10^3/uL (4.0-11.0) Red Blood Count 4.72 x10^6/uL (4.30-5.70) Hemoglobin 14.6 g/dL (13.0-17.5) Hematocrit 43.8 % (39.0-53.0) Mean Corpuscular Volume 93 fL (79-100) Mean Corpuscular Hemoglobin 31 pg (25-35) Mean Corpuscular Hemoglobin Concent 33 g/dL (31-37) Red Cell Distribution Width 13.9 % (11.5-14.5) Platelet Count 226 x10^3/uL (140-400) Neutrophils (%) (Auto) 48 % (31-73) Lymphocytes (%) (Auto) 38 % (24-48) Monocytes (%) (Auto) 11 % (0-9) Eosinophils (%) (Auto) 3 % (0-3) Basophils (%) (Auto) 1 % (0-3) Neutrophils # (Auto) 2.0 x10^3/uL (1.8-7.7) Lymphocytes # (Auto) 1.6 x10^3/uL (1.0-4.8) Monocytes # (Auto) 0.5 x10^3/uL (0.0-1.1) Eosinophils # (Auto) 0.1 x10^3/uL (0.0-0.7) Basophils # (Auto) 0.0 x10^3/uL (0.0-0.2) Triglycerides Level 102 mg/dL (0-150) Cholesterol Level 156 mg/dL (0-200) LDL Cholesterol, Calculated 70 mg/dL (0-100) VLDL Cholesterol, Calculated 20 mg/dL (0-40) Non-HDL Cholesterol Calculated 90 mg/dL (0-129) HDL Cholesterol 66 mg/dL (40-60) Cholesterol/HDL Ratio 2.4 Assessment and Plan Assessmemt and Plan Problems Medical Problems: (1) Alcohol intoxication Status: Acute (2) Hypokalemia Status: Acute (3) Nausea and vomiting Status: Acute (4) New onset a-fib Status: Acute Comment Review of Relevant I have reviewed the following items guero (where applicable) has been applied. Medications: Current Medications Medications (Trade) Dose Ordered Sig/Rodrigo Route PRN Reason Start Time Stop Time Status Last Admin Dose Admin Metoprolol Tartrate (Lopressor) 12.5 mg BID PO 02/24/22 12:00 02/25/22 07:16 DC 02/24/22 21:34 Aspirin (Ecotrin) 81 mg [id number] PO 02/25/22 08:00 02/25/22 07:52 Lisinopril (Prinivil) 2.5 mg DAILY PO 02/25/22 09:00 02/25/22 07:52 Justifications for Admission Other Justification BETZY RODRIGUEZ MD Feb 25, 2022 08:33
[2022-02-25] MEDS ORDERED: LISINOPRIL 5 MG TABLET. PO SCH (09:00)
[2022-02-25] MEDS: ACETAMINOPHEN 325 MG TABLET. PO PRN (09:17)
[2022-02-25 11:00] VITALS: BP 144/66
--- NOTE | 2022-02-25 13:33 | PDOC ---
CARDIO Progress Notes Date and Time Date of Service 02/25/2022 Time of Evaluation 1320 Subjective Subjective: No Chest Pain, No shortness of breath, No Palpitations Vitals Vitals Vital Signs Date Time Temp Pulse Resp B/P (MAP) Pulse Ox O2 Delivery O2 Flow Rate FiO2 02/25/22 11:00 98.4 53 17 144/66 (92) 98 Room Air 98.4 Weight Weight [ ] Input and Output Intake and Output Intake and Output 02/25/22 07:00 Intake Total 500 ml Output Total 1050 ml Balance -550 ml Intake Oral 500 ml Output Urine Total 1050 ml Laboratory Labs Laboratory Tests Test 02/24/22 13:43 02/25/22 05:00 Sodium Level 137 mmol/L (136-145) 137 mmol/L (136-145) Potassium Level 4.1 mmol/L (3.5-5.1) 3.9 mmol/L (3.5-5.1) Chloride Level 104 mmol/L (98-107) 104 mmol/L (98-107) Carbon Dioxide Level 25 mmol/L (21-32) 25 mmol/L (21-32) Anion Gap 8 (6-14) 8 (6-14) Blood Urea Nitrogen 10 mg/dL (8-26) 11 mg/dL (8-26) Creatinine 0.9 mg/dL (0.7-1.3) 0.8 mg/dL (0.7-1.3) Estimated GFR (Cockcroft-Gault) 96.0 110.0 Glucose Level 116 mg/dL (70-99) 88 mg/dL (70-99) Calcium Level 8.6 mg/dL (8.5-10.1) 8.8 mg/dL (8.5-10.1) Thyroid Stimulating Hormone (TSH) 1.145 uIU/mL (0.358-3.74) White Blood Count 4.2 x10^3/uL (4.0-11.0) Red Blood Count 4.72 x10^6/uL (4.30-5.70) Hemoglobin 14.6 g/dL (13.0-17.5) Hematocrit 43.8 % (39.0-53.0) Mean Corpuscular Volume 93 fL (79-100) Mean Corpuscular Hemoglobin 31 pg (25-35) Mean Corpuscular Hemoglobin Concent 33 g/dL (31-37) Red Cell Distribution Width 13.9 % (11.5-14.5) Platelet Count 226 x10^3/uL (140-400) Neutrophils (%) (Auto) 48 % (31-73) Lymphocytes (%) (Auto) 38 % (24-48) Monocytes (%) (Auto) 11 % (0-9) Eosinophils (%) (Auto) 3 % (0-3) Basophils (%) (Auto) 1 % (0-3) Neutrophils # (Auto) 2.0 x10^3/uL (1.8-7.7) Lymphocytes # (Auto) 1.6 x10^3/uL (1.0-4.8) Monocytes # (Auto) 0.5 x10^3/uL (0.0-1.1) Eosinophils # (Auto) 0.1 x10^3/uL (0.0-0.7) Basophils # (Auto) 0.0 x10^3/uL (0.0-0.2) Triglycerides Level 102 mg/dL (0-150) Cholesterol Level 156 mg/dL (0-200) LDL Cholesterol, Calculated 70 mg/dL (0-100) VLDL Cholesterol, Calculated 20 mg/dL (0-40) Non-HDL Cholesterol Calculated 90 mg/dL (0-129) HDL Cholesterol 66 mg/dL (40-60) Cholesterol/HDL Ratio 2.4 Physical Exam HEENT: Neck Supple W Full Motion Chest: Symmetric LUNGS: Clear to Auscultation Heart: S1S2, RRR (SR/SB) Abdomen: Soft N/T Extremities: No Edema, No Calf Tenderness Neurology: alert, oriented, follow commands Assessment Assessment 1. ETOH misuse 2. Nausea/vomiting/diarrhea: due to above 3. Anion gap metabolic acidosis: due to above 4. Hypokalemia: repalced 5. AFIB RVR: new onset due to above, spontaneously converted to SR. Maintaining SR/SB lowest mid 40s 6. Tobacco and marijuana use 7. NICM: EF 40-45%. suspect tachymediated and ETOH. Recommendations 1. CIWA protocol 2. Continue Low dose toprol and lisinopril 3. MCOT is recommended but may not be able to comply due to lack of health ins. 4. Lifestyle modification including abstinence as noted above 5. Follow up echo in 3 months. Encouraged to follow up in office Justicifation of Admission Dx: Justifications for Admission: Justification of Admission Dx: Yes KIMMIE DAVIS PINKED EDGE SEWING MACHINE OPERATOR Feb 25, 2022 13:33
[2022-02-25 14:25] VITALS: BP 144/68
--- NOTE | 2022-02-25 14:41 | NUR ---
SS following up with discharge planning. SS reviewed pt chart and discussed with pt RN. Pt is from home with spouse and is currently on room air. Cardiology following. Self pay. Med Assist following. SS will continue to follow for discharge planning.
[2022-02-25] MEDS ORDERED: METO-239 PO (15:07)
[2022-02-25] MEDS ORDERED: ASPI-886 PO (15:07)
[2022-02-25] MEDS ORDERED: ATOR20TA58 PO (15:07)
[2022-02-25] MEDS ORDERED: LISI5TAB15 PO (15:07)
--- NOTE | 2022-02-25 15:14 | PDOC3 ---
Discharge Summary Visit Information Date of Admission: Feb 24, 2022 Date of Discharge: Feb 25, 2022 Admitting Diagnosis: Chest pain, nausea and vomiting Final Diagnosis Problems Medical Problems: (1) Alcohol intoxication Status: Acute (2) Hypokalemia Status: Acute (3) Nausea and vomiting Status: Acute (4) New onset a-fib Status: Acute Brief Hospital Course Allergies Allergies Coded Allergies Type Severity Reaction Last Updated Verified No Known Drug Allergies 02/23/22 No Vital Signs Vital Signs Date Time Temp Pulse Resp B/P (MAP) Pulse Ox O2 Delivery O2 Flow Rate FiO2 02/25/22 14:25 98.8 55 18 144/68 (93) 96 Room Air 98.8 Lab Results Laboratory Tests Test 02/23/22 21:30 02/23/22 23:19 02/24/22 13:43 02/25/22 05:00 White Blood Count 8.0 x10^3/uL (4.0-11.0) 4.2 x10^3/uL (4.0-11.0) Red Blood Count 4.74 x10^6/uL (4.30-5.70) 4.72 x10^6/uL (4.30-5.70) Hemoglobin 14.8 g/dL (13.0-17.5) 14.6 g/dL (13.0-17.5) Hematocrit 43.8 % (39.0-53.0) 43.8 % (39.0-53.0) Mean Corpuscular Volume 93 fL (79-100) 93 fL (79-100) Mean Corpuscular Hemoglobin 31 pg (25-35) 31 pg (25-35) Mean Corpuscular Hemoglobin Concent 34 g/dL (31-37) 33 g/dL (31-37) Red Cell Distribution Width 13.5 % (11.5-14.5) 13.9 % (11.5-14.5) Platelet Count 268 x10^3/uL (140-400) 226 x10^3/uL (140-400) Neutrophils (%) (Auto) 65 % (31-73) 48 % (31-73) Lymphocytes (%) (Auto) 26 % (24-48) 38 % (24-48) Monocytes (%) (Auto) 7 % (0-9) 11 % (0-9) Eosinophils (%) (Auto) 2 % (0-3) 3 % (0-3) Basophils (%) (Auto) 0 % (0-3) 1 % (0-3) Neutrophils # (Auto) 5.2 x10^3/uL (1.8-7.7) 2.0 x10^3/uL (1.8-7.7) Lymphocytes # (Auto) 2.0 x10^3/uL (1.0-4.8) 1.6 x10^3/uL (1.0-4.8) Monocytes # (Auto) 0.6 x10^3/uL (0.0-1.1) 0.5 x10^3/uL (0.0-1.1) Eosinophils # (Auto) 0.1 x10^3/uL (0.0-0.7) 0.1 x10^3/uL (0.0-0.7) Basophils # (Auto) 0.0 x10^3/uL (0.0-0.2) 0.0 x10^3/uL (0.0-0.2) Sodium Level 139 mmol/L (136-145) 137 mmol/L (136-145) 137 mmol/L (136-145) Potassium Level 2.9 mmol/L (3.5-5.1) 4.1 mmol/L (3.5-5.1) 3.9 mmol/L (3.5-5.1) Chloride Level 101 mmol/L (98-107) 104 mmol/L (98-107) 104 mmol/L (98-107) Carbon Dioxide Level 22 mmol/L (21-32) 25 mmol/L (21-32) 25 mmol/L (21-32) Anion Gap 16 (6-14) 8 (6-14) 8 (6-14) Blood Urea Nitrogen 13 mg/dL (8-26) 10 mg/dL (8-26) 11 mg/dL (8-26) Creatinine 0.8 mg/dL (0.7-1.3) 0.9 mg/dL (0.7-1.3) 0.8 mg/dL (0.7-1.3) Estimated GFR (Cockcroft-Gault) 110.0 96.0 110.0 BUN/Creatinine Ratio 16 (6-20) Glucose Level 110 mg/dL (70-99) 116 mg/dL (70-99) 88 mg/dL (70-99) Calcium Level 8.6 mg/dL (8.5-10.1) 8.6 mg/dL (8.5-10.1) 8.8 mg/dL (8.5-10.1) Magnesium Level 2.0 mg/dL (1.8-2.4) Total Bilirubin 0.9 mg/dL (0.2-1.0) Aspartate Amino Transf (AST/SGOT) 21 U/L (15-37) Alanine Aminotransferase (ALT/SGPT) 18 U/L (16-63) Alkaline Phosphatase 86 U/L (46-116) Total Protein 8.1 g/dL (6.4-8.2) Albumin 4.4 g/dL (3.4-5.0) Albumin/Globulin Ratio 1.2 (1.0-1.7) Lipase 71 U/L (73-393) Salicylates Level 2.7 mg/dL (2.8-20.0) Salicylate Last Dose Date Unk Salicylate Last Dose Time Unk Acetaminophen Level < 2 mcg/ml (10-30) Acetaminophen Last Dose Date Unk Acetaminophen Last Dose Time Unk Ethyl Alcohol Level 120 mg/dL (0-10) Urine Collection Type Unknown Urine Color (Auto) Colorless Urine Turbidity Clear Urine pH (Auto) 6.0 (<5.0-8.0) Urine Specific [place] 1.006 (1.000-1.030) Urine Protein (Auto) Negative mg/dL (Negative) Urine Glucose (Auto)(UA) Negative mg/dL (Negative) Urine Ketones (Auto) Negative mg/dL (Negative) Urine Blood (Auto) Negative (Negative) Urine Nitrite Negative (Negative) Urine Bilirubin (Auto) Negative (Negative) Urine Urobilinogen (Auto) Normal mg/dL (Normal) Urine Leukocyte Esterase (Auto) Negative (Negative) Urine RBC 0 /HPF (0-2) Urine WBC 0 /HPF (0-4) Urine Squamous Epithelial Cells Occ /LPF Urine Bacteria 0 /HPF (0-FEW) Urine Opiates Screen Neg (NEG) Urine Methadone Screen Neg (NEG) Urine Barbiturates Neg (NEG) Urine Phencyclidine Screen Neg (NEG) Urine Amphetamine/Methamphetamine Neg (NEG) Urine Benzodiazepines Screen Neg (NEG) Urine Cocaine Screen Neg (NEG) Urine Cannabinoids Screen Pos (NEG) Urine Ethyl Alcohol Pos (NEG) Thyroid Stimulating Hormone (TSH) 1.145 uIU/mL (0.358-3.74) Triglycerides Level 102 mg/dL (0-150) Cholesterol Level 156 mg/dL (0-200) LDL Cholesterol, Calculated 70 mg/dL (0-100) VLDL Cholesterol, Calculated 20 mg/dL (0-40) Non-HDL Cholesterol Calculated 90 mg/dL (0-129) HDL Cholesterol 66 mg/dL (40-60) Cholesterol/HDL Ratio 2.4 Laboratory Tests Test 02/25/22 05:00 White Blood Count 4.2 x10^3/uL (4.0-11.0) Red Blood Count 4.72 x10^6/uL (4.30-5.70) Hemoglobin 14.6 g/dL (13.0-17.5) Hematocrit 43.8 % (39.0-53.0) Mean Corpuscular Volume 93 fL (79-100) Mean Corpuscular Hemoglobin 31 pg (25-35) Mean Corpuscular Hemoglobin Concent 33 g/dL (31-37) Red Cell Distribution Width 13.9 % (11.5-14.5) Platelet Count 226 x10^3/uL (140-400) Neutrophils (%) (Auto) 48 % (31-73) Lymphocytes (%) (Auto) 38 % (24-48) Monocytes (%) (Auto) 11 % (0-9) Eosinophils (%) (Auto) 3 % (0-3) Basophils (%) (Auto) 1 % (0-3) Neutrophils # (Auto) 2.0 x10^3/uL (1.8-7.7) Lymphocytes # (Auto) 1.6 x10^3/uL (1.0-4.8) Monocytes # (Auto) 0.5 x10^3/uL (0.0-1.1) Eosinophils # (Auto) 0.1 x10^3/uL (0.0-0.7) Basophils # (Auto) 0.0 x10^3/uL (0.0-0.2) Sodium Level 137 mmol/L (136-145) Potassium Level 3.9 mmol/L (3.5-5.1) Chloride Level 104 mmol/L (98-107) Carbon Dioxide Level 25 mmol/L (21-32) Anion Gap 8 (6-14) Blood Urea Nitrogen 11 mg/dL (8-26) Creatinine 0.8 mg/dL (0.7-1.3) Estimated GFR (Cockcroft-Gault) 110.0 Glucose Level 88 mg/dL (70-99) Calcium Level 8.8 mg/dL (8.5-10.1) Triglycerides Level 102 mg/dL (0-150) Cholesterol Level 156 mg/dL (0-200) LDL Cholesterol, Calculated 70 mg/dL (0-100) VLDL Cholesterol, Calculated 20 mg/dL (0-40) Non-HDL Cholesterol Calculated 90 mg/dL (0-129) HDL Cholesterol 66 mg/dL (40-60) Cholesterol/HDL Ratio 2.4 Brief Hospital Course Mr Leal is a 36 year old male with history of alcohol use disorder, smoker presenting to ED with significant other complaining of nausea and vomiting that began after drinking 6-8 beers. Denies any abdominal pain, denies any chest pain or shortness of breath. He also reports smoking marijuana Patient is Welsh-speaking and interpretation is provided by [email or web address] and [employer] translate application Alcohol level 120. CBC with no acute findings, CMP with potassium of 2.9, oral potassium replacement done in the ED. Given a banana bag. He initially presented intoxicated and when he got up to stand became tachycardic with a rate of 130 Twelve-lead EKG demonstrates atrial fibrillation with a rate of 106. PVCs are present as well. There is no ST elevation or depression. QRS and QT corrected intervals are within normal limits. WBC 8, Hb 14.8, platelets 268, NA 139, K3.9, BUN 13, CR 0.8, glucose 110, lipase 71, LFTs within normal laboratory limits, ethanol level 120 mg/dL at 2130, urine ethanol and cannabinoids positive, urinalysis otherwise bland Seen bedside and after 4 hours of atrial tachycardia on telemetry he converted to sinus about 30 minutes prior to my evaluation. He feels improved has a littl e bit of nausea but is asking for something by mouth Echo with left ventricular systolic function mildly decreased. EF 40-45% and mild global hypokinesis as well as right ventricle mildly enlarged. 02/25: Seen bedside his . He does have chest right-sided chest pain today that is positional and reproducible with palpation. Discussed results of echocardiogram and need for outpatient cardiology follow-up and stress testing. Emphasized alcohol cessation and smoking cessation. He voiced, understanding. Utilize [employer] services for interview today. Will be discharged home on Toprol-XL lisinopril ASA and statin. Consults: Cardiology Problem list: Alcohol intoxication -given banana bag and IV fluids. resolved Nausea and vomiting -improved with IV fluids and nausea control Hypokalemia -due to vomiting GI losses. Replaced p.o. and IV New onset a-fib -converted to sinus spontaneously. He has significant other no prior history of hypertension was on blood pressure medications but has not been on them for long time. Systolic CHF -likely nonischemic given alcohol and tobacco use. Will need outpatient ischemic evaluation. Started on Toprol-XL lisinopril ASA and statin. Greater than 30 minutes spent on d/c home with self care and cardiology follow up. Discharge Information Condition at Discharge: Improved Follow Up: Weeks (1) Disposition/Orders: D/C to Home Scheduled Aspirin (Aspirin Ec) 81 Mg Tablet.dr, 81 MG PO DAILYWBKFT for CHF for 30 Days, #30 Ref 5 Prescribed by: BETZY RODRIGUEZ MD on 02/25/22 1507 Atorvastatin Calcium (Atorvastatin Calcium) 20 Mg Tablet, 20 MG PO QHS for CHF for 30 Days, #30 Ref 5 Prescribed by: BETZY RODRIGUEZ MD on 02/25/22 1507 Lisinopril (Lisinopril) 5 Mg Tablet, 2.5 MG PO DAILY for CHF for 30 Days, #15 Ref 5 Prescribed by: BETZY RODRIGUEZ MD on 02/25/22 1507 Metoprolol Succinate (Metoprolol Succinate ( Xl )) 25 Mg Tab.er.24h, 25 MG PO DAILY for CHF for 30 Days, #30 Ref 5 Prescribed by: BETZY RODRIGUEZ MD on 02/25/22 1507 Discontinued Medications Info (No Known Medications Prior To Admisstion) Each, 1 EACH for , (Reported) Entered as Reported by: Deon Shaw on 02/24/22426 Last Action: New Order on 02/24/22426 by Deon Shaw Justicifation of Admission Dx: Justifications for Admission: Justification of Admission Dx: Yes BETZY RODRIGUEZ MD Feb 25, 2022 15:14
--- NOTE | 2022-02-25 15:45 | NUR ---
Discharge Note: [facility] Discharge instructions and discharge home medications reviewed with Patient and a copy given. All questions have been answered and understanding verbalized. The following instructions and handouts were given: Follow up with sessions clerk in 6 weeks and have a repeat echo in 3 months Discontinued lines and drains: IV and heart monitor Patient discharged to home
[2022-02-25] MEDS ORDERED: ATORVASTATIN CALCIUM 20 MG TABLET PO SCH (21:00)
== END 2022-02-25 15:40 | disposition home or self-care (01) | DRG 309 ==
LOC: ER 21:15 → 6 SOUTH 02-24 02:10
PROVIDERS: ADMIT Internal Medicine; ATTEND Internal Medicine
DX: I48.91 Unspecified atrial fibrillation (principal); E87.2 Acidosis; I50.20 Unspecified systolic (congestive) heart failure; E87.6 Hypokalemia; F10.229 Alcohol dependence with intoxication, unspecified; F12.90 Cannabis use, unspecified, uncomplicated; F17.210 Nicotine dependence, cigarettes, uncomplicated; I11.0 Hypertensive heart disease with heart failure; I42.8 Other cardiomyopathies; I49.3 Ventricular premature depolarization; Y90.6 Blood alcohol level of 120-199 mg/100 ml; Z82.49 Family history of ischemic heart disease and other diseases of the circulatory system; Z83.3 Family history of diabetes mellitus
CPT/HCPCS: 36415; 80048; 80053; 80061; 80307; 80329; 81001; 83690; 83735; 84443; 85025; 93005; 93306; 96361; 96365; G0379; G0480; J3411; J3480; J3490; J7030; 99285-25; C8929